=== PATIENT | female | born 1935 | race Caucasian/White ===

== ENCOUNTER 2016-11-09 12:16 | Day surgery (SDC) | payer MEDICARE ==
--- NOTE | ~2016-11-09 | OP ---
Record Of Operation [facility] [address] [place]. [address] NAME: SANTOS MARISCAL : 37 STATUS : REG [facility] PAT#: [id number] AGE: 81 ADM/REG DATE : 11/09/16 MR#: [id number] REPORT SERV DATE: 11/09/16 DICTATED BY: PASCALE WEST DATE: 11/09/16 REPORT STATUS : Draft TRANSCRIBED BY: MODNghia DATE: 11/09/16 DATE OF PROCEDURE: 11/09/2016 PREOPERATIVE DIAGNOSIS: Right hand, 1. Carpal tunnel syndrome. 2. Osteoarthritis of the thumb joints. PROCEDURES: 1. Right carpal tunnel release. 2. Steroid injections using 80 mg of Depo-Medrol and 2 mL of 1% lidocaine plain this is spread out between the thumb CMC, MP, and IP joints. BANK PRESIDENT: Tomás Lua. ANESTHESIA: Local only. ESTIMATED BLOOD LOSS: Less than 1 mL. COMPLICATIONS: None. DISPOSITION: The patient tolerated the procedure well and was brought to recovery room in stable condition. PROCEDURE NOTE: In the preop holding area, the right carpal tunnel area was prepped and 10 mL of 1% lidocaine with epinephrine and 5 mL of 1% lidocaine plain was injected in and about the skin overlying the carpal tunnel area to provide an adequate local block. The patient was later brought to the operating room and placed in supine position. After a pneumatic tourniquet was placed around the right upper extremity. Right upper extremity was prepped and draped in the usual sterile manner. A surgical timeout was performed. The arm was exsanguinated and the tourniquet was inflated. Carpal tunnel release was carried out by taking a 15-blade scalpel making a 3 to 4 cm longitudinal incision starting at the volar wrist crease and directed distally in line with the radial aspect of the ring finger. After the skin was incised, the palmar fascia was identified, incised along the length of its fibers to reveal the underlying transverse carpal ligament. The entire transverse carpal ligament from its most proximal to its most distal border was incised just radial to the hook of the hamate, and after doing so, the median nerve appeared well decompressed. The wound was then irrigated and skin was closed with deep and running Monocryl suture. Steri-Strips were applied. The thumb CMC joint, MP joint, and IP joint were then injected with Depo-Medrol. A total of 80 mg of Depo-Medrol mixed with 2 mL of lidocaine for a total of 6 mL of fluid was dispersed into the three joints. Afterwards, a sterile dressing was applied. Tourniquet was released and the patient was then ready to be brought to recovery room having tolerated procedure quite well. Record Of Operation [address] [place]. [address] NAME: SANTOS MARISCAL : 37 STATUS : REG [facility]#: [id number] AGE: 81 ADM/REG DATE : 11/09/16 MR#: [id number] REPORT SERV DATE: 11/09/16 DICTATED BY: PASCALE WEST DATE: 11/09/16 REPORT STATUS : Draft TRANSCRIBED BY: GABRIEL DATE: 11/09/16 LUIS/GABRIEL Pascale West M.D. / [id number] CC: Teresita Arredondo M.D.
[~2016-11-09 12:16] MED LIST: ASAB PO; CYMBALTA60 PO; ELIQUIS 2.5 MG2.5 MG PO; FOLIC PO; IMDUR30 PO; K-TABS10 MEQ PO; L40 PO; LAN125 PO; MIRALAX POWDER1 PKT PO; MUCINEX D PO; NEUR300 PO; OS500+D PO; PREM625 PO; PREV30 PO; RYTHMOL150 MG PO; SINGULAIR1 PO; TEGRETOL100 MG PO; VASERETIC10 PO; VASERETIC5 PO; VASOTEC5 PO; VITAMIN D31000 UNIT PO; ZOL100 PO
== END 2016-11-09 18:51 | disposition home or self-care (01) ==
LOC: SDC 12:16
PROVIDERS: Orthopaedic Surgery Hand Surgery
PROC: 3E0U3GC Introduction of Other Therapeutic Substance into Joints, Percutaneous Approach (ICD-10-PCS; 2016-11-09)
PROC: 01N50ZZ Release Median Nerve, Open Approach (ICD-10-PCS; principal; 2016-11-09 14:00)
DX: G56.01 Carpal tunnel syndrome, right upper limb (principal); M19.041 Primary osteoarthritis, right hand; J45.909 Unspecified asthma, uncomplicated; K21.9 Gastro-esophageal reflux disease without esophagitis; G62.9 Polyneuropathy, unspecified; Z88.2 Allergy status to sulfonamides; Z88.8 Allergy status to other drugs, medicaments and biological substances; Z90.49 Acquired absence of other specified parts of digestive tract; Z90.710 Acquired absence of both cervix and uterus; Z98.890 Other specified postprocedural states
CPT/HCPCS: J1030